=== PATIENT | male | born 1970 | race Caucasian/White ===

== ENCOUNTER 2017-01-24 20:40 | Emergency (ER) | payer OTHER ==
[2017-01-24] MEDS ORDERED: IBUPROFEN 200 MG TAB PO ONE (21:28)
[2017-01-24] MEDS ORDERED: OXYCODONE/APAP 5/325MG PREPACK#4 BTL TAKEHOME ONE (21:54)
--- NOTE | 2017-01-24 21:56 | EDPHY ---
General Narrative: CHIEF COMPLAINT: Left ankle injury, softball injury HISTORY OF PRESENT ILLNESS: Patient complains of left ankle pain. He was playing softball this evening when he stepped awkwardly on 2nd base and the 2nd basement foot the same time. He does not know exactly which way his foot went but he felt a sudden onset of pain and a cracking sensation in the ankle. This is primarily anterior and anterolaterally. Severe pain. Constant duration. Does not radiate. No pain in the midfoot or calcaneus. No pain in the proximal fibula. No pain in the knee or hip. No numbness or tingling. Unable to bear weight on this. Minimal improvement rest. No other associated complaints or modifying factors. ESTABLISHED ORTHOPEDIST: Previous [facility], name unknown REVIEW OF SYSTEMS: Ten systems reviewed and are negative unless otherwise noted in the HPI PAST MEDICAL HISTORY: Previous orthopedic injuries PAST SURGICAL HISTORY: Left knee laparoscopy 2013 SOCIAL HISTORY: Nonsmoker. 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 Symmetric DP and PT pulses 2+. Brisk cap refill Neurological: A&O, sensory symmetric, strength symmetric. No foot drop. Normal proprioception of the left great toe Skin: Warm and dry, no rash. No petechiae purpura. No laceration. Extremities: Significant tenderness of the left ankle. There is mild effusion , low lateral greater than medial. No crepitus or deformity. There is no left midfoot tenderness. No calcaneal tenderness no tenderness of the proximal fibula. Range of motion difficult to fully test due to pain but he does have dorsiflexion plantar flexion. No laceration. No puncture. No erythema. Compartments are soft of the lower extremity. Psychiatric: Mood and affect normal DIFFERENTIAL DIAGNOSES: Including but not limited to sprain, strain, fracture, dislocation MDM: 9:55 p.m. Acute left ankle sprain with possible chip fracture of the talar dome. He is neuro intact. I have placed him in a Bradley boot and crutches. He is nonweightbearing. He will follow up with [facility]. We discussed ED precautions. We discussed pain tolerance, ice, elevation ibuprofen. He is comfortable with this plan. He will be discharged home stable condition, neurovascular intact 10:25 p.m. Asked to re-evaluated the patient as he is complaining of too much pain with the Rome boot. We discussed placing soft splint material on the ankle. I informed him that he needs to choose either the Bradley boot or a posterior splint due to the nonweightbearing status of the talar dome fracture. He said that he will proceed with the Rome boot with soft roll cast padding in place. ED Precautions: Worsening pain. Erythema, edema, cyanosis, pallor, paresthesia or anesthesia. - Diagnostics Imaging Results: Imaging Impressions Ankle X-Ray 01/24/17 21:06 Impression: Age indeterminate tiny chip fracture off lateral talar dome. - History Smoking Status: Never smoked - Objective Vital Signs: Initial Vital Signs Temperature (C) 98.1 F 01/24/17 21:02 Heart Rate 102 H 01/24/17 21:02 Respiratory Rate 18 01/24/17 21:02 Blood Pressure 149/93 H 01/24/17 21:02 O2 Sat (%) 96 01/24/17 21:02 O2 Delivery Mode Room Air Allergies/Adverse Reactions: No Known Allergies Allergy (Unverified 11/05/13 19:27) Home Medications: Medication Instructions Recorded Carbamazepine 11/05/13 Tegretol 11/05/13 IMIPRAMINE PAMOATE 11/04/14 oxyCODONE HCL/ACETAMINOPHEN 1 each PO Q4-6PRN PRN #17 tablet 01/24/17 [Percocet 5-325 mg Tablet] Medications Given: Discontinued Medications Ibuprofen (Motrin) 800 mg PO EDNOW ONE Stop: 01/24/17 21:29 Last Admin: 01/24/17 21:35 Dose: 800 mg Oxycodone/Acetaminophen (Percocet 5/325mg Prepack#4) 1 btl TAKEHOME EDNOW ONE Stop: 01/24/17 21:55 Last Admin: 01/24/17 22:04 Dose: 1 btl Departure - Departure Disposition: Home, Routine, Self-Care Clinical Impression: Left ankle sprain Qualifiers: Encounter type: initial encounter Involved ligament of ankle: other ligament Qualified Code(s): S93.492A - Sprain of other ligament of left ankle, initial encounter Talar dome fracture Qualifiers: Encounter type: initial encounter Fracture type: closed Fracture alignment: nondisplaced Laterality: left Qualified Code(s): S92.145A - Nondisplaced dome fracture of left talus, initial encounter for closed fracture Condition: Good Instructions: Oxycodone/Acetaminophen (By mouth), Ankle Sprain (ED), Talar Fracture in Adults (ED) Additional Instructions: 1. Strict nonweightbearing until seen by orthopedist 2. Strict ED precautions for worsening pain, numbness, tingling 3. Medications as prescribed as needed Referrals: PANKAJ MURO [Primary Care Provider] - As per Instructions Grant Dodge MD [Medical Doctor] - As per Instructions Prescriptions: oxyCODONE HCL/ACETAMINOPHEN [Percocet 5-325 mg Tablet] 1 each PO Q4-6PRN PRN # 17 tablet PRN Reason: Pain, Breakthrough
[2017-01-24 22:42] VITALS: BP 139/91; PULSE 89; RESP 16; TEMP 97.9; O2SAT 93
== END 2017-01-24 22:41 | disposition home or self-care (01) ==
DX: S92.145A Nondisplaced dome fracture of left talus, initial encounter for closed fracture (principal); S93.492A Sprain of other ligament of left ankle, initial encounter; W18.40XA Slipping, tripping and stumbling without falling, unspecified, initial encounter; Y99.8 Other external cause status; Y93.64 Activity, baseball
CPT/HCPCS: L4386